=== PATIENT | male | born 1960 | race Caucasian/White ===

== ENCOUNTER 2017-07-08 19:25 | Emergency (ER) | payer OTHER ==
[2017-07-08 21:00] LABS: Urine Blood NEGATIVE (NEG); Urine Glucose NEGATIVE (NEG); Urine Protein NEGATIVE (NEG); Urine Specific Gravity 1.025 (1.005-1.030); Urine pH 5.5 (5.0-7.0)
[2017-07-08] MEDS ORDERED: ACETAMINOPHEN 325 MG TABLET ONE (21:03)
[2017-07-08 21:09] LABS: Absolute Lymphocytes (CBC) 1.8 K/uL (0.7-4.9); Absolute Monocytes 0.8 K/uL (0.1-1.3); Absolute Neutrophil 6.6 K/uL (1.8-8.0); Basophils % 0.2 % (0-1.3); Eosinophils % 1.8 % (0-4.4); Hematocrit 38.7 % (39.6-49.0); Lymphocytes % 19.3 % (15.3-44.8); MCH 31.7 pg (27.0-35.0); MPV 7.9 fL (7.6-11.3); Monocytes % 8.8 % (3.3-12.3)
[2017-07-08 21:16] LABS: Bicarbonate 25 mEq/L (21-31); Glucose Level 87 mg/dL (65-120); Potassium 3.8 mEq/L (3.6-5.0); Sodium Level 137 mEq/L (135-145)
[2017-07-08 21:17] LABS: BUN Blood Urea Nitrogen 15 mg/dL (6-20)
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
--- NOTE | 2017-07-09 11:52 | RAD REPORT ---
EXAM DESCRIPTION: RAD - Knee Left 3 View - 07/08/2017 9:53 pm CLINICAL HISTORY: Left knee pain. COMPARISON: None. FINDINGS: Left total knee arthroplasty noted. No hardware complication. Bony fragmentation seen infe rior aspect of the patella, possibly related fracture or secondarily from prior surgery. Mild soft ti ssue swelling anteriorly.
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
== END 2017-07-09 00:27 | disposition home or self-care (01) ==
LOC: ER 19:25
DX: S80.212A Abrasion, left knee, initial encounter (principal); M25.561 Pain in right knee; Z96.652 Presence of left artificial knee joint; V49.50XA Passenger injured in collision with unspecified motor vehicles in traffic accident, initial encounter; Y92.413 State road as the place of occurrence of the external cause
CPT/HCPCS: 36415; 80048; 81003; 85025; 99284

== ENCOUNTER 2019-08-01 13:12 | Emergency (ER) | payer OTHER ==
--- OUTSIDE RECORDS SUMMARY | 2019-08-01 13:16 | XMS REPORT | Clinical Summary ---
:1960 Author Organization [facility] Address [address] [place] [address] Care Team Providers Name Role Phone Ashish Wheeler MD Primary Care Provider Allergies No Known Allergies Medications Medication Sig Dispensed Refills Start Date End Date Status atorvastatin Take 20 mg by mouth 0 Active (LIPITOR) 20 MG nightly. Default OP tablet ins triamcinolone 2 sprays into each 0 Active (NASACORT) 55 mcg nostril daily. nasal inhaler beta carotene Take 1 capsule by 0 Active (LUMITENE) 30 mg mouth daily. capsule traZODone (DESYREL) Take 100 mg by 0 Active 100 MG tablet mouth nightly. albuterol (ACCUNEB) Take 1 ampule by 0 Active 1.25 mg/3 mL nebulization every nebulizer solution 6 (six) hours as needed for wheezing. albuterol (PROAIR Inhale 2 puffs 0 Active HFA,PROVENTIL every 6 (six) hours HFA,VENTOLIN HFA) 90 as needed for mcg/actuation inhaler wheezing. ondansetron (ZOFRAN) Take 4 mg by mouth 0 Active 4 MG tablet every 8 (eight) hours as needed for nausea or vomiting. mesalamine (LIALDA) Take 2,400 mg by 0 Active 1.2 gram EC tablet mouth daily with breakfast. therapeutic Take 1 tablet by 0 A ctive multivitamin mouth daily. (THERAGRAN) tablet Active Problems Problem Noted Date Chest tightness or pressure 07/06/2018 Social History Tobacco Use Types Packs/Day Years Used Date Never Smoker Smokeless Tobacco: Never Used Alcohol Use Drinks/Week oz/Week Comments Yes socially Sex Assigned at Date Recorded Not on file Job Start Date Occupation Industry Not on file Not on file Not on file Travel History Travel Start Travel End No recent travel history available. Last Filed Vital Signs Not on file Plan of Treatment Health Maintenance Due Date Last Done Comments COLONOSCOPY SCREENING 08/07/2009 SHINGLES VACCINES (#1) 08/07/2009 INFLUENZA VACCINE 10/19/2019 Results Not on fileafter 07/31/2018 Insurance Payer Benefit Plan / Subscriber ID Effective Dates Phone Addre ss Type Group [place]F OF [place] AN[place] CONF OF xxxxxxxxx 2009-Present O [facility] Advance Directives For more information, please contact: [phone] Type Date Recorded Patient Development Technician Explanati on Advance Directives, Living Will and Medical Power of Employment Attorney Code Status Date Activated Date Inactivated Comments Full Code 07/06/2018 4:22 PM 07/07/2018 6:10 PM Code Status decision reached by: Patient
[2019-08-01 13:56] LABS: Protime INR 1.02
[2019-08-01 14:05] LABS: ALT/SGPT 68 U/L (12-78); AST/SGOT 87 U/L (15-37); Albumin 3.7 g/dL (3.4-5.0); Alkaline Phosphatase 146 U/L (45-117); BUN Blood Urea Nitrogen 15 mg/dL (7-18); Bicarbonate 25 mmol/L (21-32); Bilirubin Direct 0.3 mg/dL (0-0.2); Bilirubin Total 0.7 mg/dL (0.2-1.0); Glucose Level 99 mg/dL (74-106); Magnesium 2.1 mg/dL (1.8-2.4); NT PRO-BNP 22 pg/mL (<125); Potassium 4.1 mmol/L (3.5-5.1); Protein, Total 7.1 g/dL (6.4-8.2); Sodium Level 141 mmol/L (136-145); Troponin (Emerg Dept Use Only) < 0.02 ng/mL (0.0-0.045)
--- NOTE | 2019-08-01 14:29 | RAD REPORT ---
EXAM DESCRIPTION: [place] Single View08/01/2019 1:55 pm CLINICAL HISTORY: Chest pain COMPARISON: none FINDINGS: The lungs appear clear of acute infiltrate. The heart is normal size IMPRESSION: No acute abnormalities displayed. If patient's symptoms persist PA and lateral chest se tor would be recommended
[2019-08-01 14:30] LABS: Absolute Lymphocytes (CBC) 1.6 K/uL (0.7-4.9); Basophils % 0.1 % (0-1.3); Hematocrit 38.3 % (39.6-49.0); Lymphocytes % 16.4 % (15.3-44.8); RBC Red Blood Cell Count 4.15 M/uL (4.33-5.43)
--- NOTE | 2019-08-01 16:49 | ER ---
Nurse's Notes [facility] Name: Eris Alfonso II Age: 58 yrs Sex: Male : 1960 Arrival Date: 08/01/2019 Time: 13:14 Bed 4 Private MD: Diagnosis: Chest pain, unspecified Presentation: 07/31 13:15 Chief complaint: EMS states: called out for chest pain that started around 1200, pt em described pain as "elephant sitting on chest" pt denies nausea/vomiting, was given 324 mg ASA and 0.4 mg nitro, pt reports relief from s/s, denies pain now, reports only weakness and feeling different, VSS, EKG SR. Coronavirus screen: Proceed with normal triage. Patient denies a cough. Patient denies shortness of breath or difficulty breathing. Patient denies measured and/or subjective temperature greater than 100.4F prior to today's visit. Patient denies travel on a cruise ship or to a country the [facility] currently lists as an affected area. Patient denies contact with known and/or suspected case of COVID-19. Ebola Screen: Patient negative for fever greater than or equal to 101.5 degrees Fahrenheit, and additional compatible Ebola Virus Disease symptoms Patient denies exposure to infectious person. Patient denies travel to an Ebola-affected area in the 21 days before illness onset. No symptoms or risks identified at this time. Initial Sepsis Screen: Does the patient meet any 2 criteria? No. Patient's initial sepsis screen is negative. Does the patient have a suspected source of infection? No. Patient's initial sepsis screen is negative. Risk Assessment: Do you want to hurt yourself or someone else? Patient reports no desire to harm self or others. Onset of symptoms was August 01, 2019 at 12:00. 13:15 Method Of Arrival: EMS: [facility] em 13:15 Acuity: ROSIE 3 em Historical: - Allergies: 13:19 TETRACYCLINES; em - PMHx: 13:19 Crohn's; em - PSHx: 13:19 L knee; em - Immunization history:: Adult Immunizations up to date. - Social history:: Smoking status: Patient denies any tobacco usage or history of. Screenin:22 Abuse screen: Denies threats or abuse. Nutritional screening: No deficits noted. em Tuberculosis screening: No symptoms or risk factors identified. Fall Risk None identified. Assessment: 13:15 General: Appears in no apparent distress. comfortable, Behavior is calm, cooperative, em appropriate for age, Denies fever. Pain: Complains of pain in chest Pain does not radiate. Pain currently is 0 out of 10 on a pain scale. Pain began 1 hour ago. Neuro: Level of Consciousness is awake, alert, obeys commands, Oriented to person, place, time, situation, Appropriate for age. Cardiovascular: Capillary refill < 3 seconds Patient's skin is warm and dry. Rhythm is sinus rhythm. Respiratory: Airway is patent Respiratory effort is even, unlabored, Respiratory pattern is regular, symmetrical, Denies cough, shortness of breath. GI: Abdomen is round non-distended, Patient currently denies nausea, vomiting. Derm: Skin is intact, is healthy with good turgor, Skin is pink, warm \\T\\ dry. Musculoskeletal: Capillary refill < 3 seconds, Range of motion: intact in all extremities. 13:55 Reassessment: Patient appears in no apparent distress at this time. Patient and/or em family updated on plan of care and expected duration. Pain level reassessed. Patient is alert, oriented x 3, equal unlabored respirations, skin warm/dry/pink. 15:27 Reassessment: Patient appears in no apparent distress at this time. Patient and/or em family updated on plan of care and expected duration. Pain level reassessed. Patient is alert, oriented x 3, equal unlabored respirations, skin warm/dry/pink. Patient denies pain at this time. 16:05 Reassessment: Patient appears in no apparent distress at this time. repeat EKG and em repeat trop. sent. 17:03 Reassessment: Patient appears in no apparent distress at this time. Patient and/or em family updated on plan of care and expected duration. Pain level reassessed. Patient is alert, oriented x 3, equal unlabored respirations, skin warm/dry/pink. Vital Signs: 13:15 BP 138 / 85; Pulse 79; Resp 20; Pulse Ox 94% on R/A; Pain 0/10; em 13:21 Temp 98.3; Weight 133.81 kg; Height 6 ft. 0 in. (182.88 cm); em 13:55 BP 134 / 65; Pulse 83; Resp 16; Pulse Ox 99% on R/A; em 14:45 BP 119 / 67; Pulse 79; Resp 18; Pulse Ox 95% on R/A; em 15:45 BP 104 / 49; Pulse 74; Resp 18; Pulse Ox 99% on R/A; Pain 0/10; em 17:05 BP 116 / 57; Pulse 69; Resp 16; Pulse Ox 99% on R/A; Pain 0/10; em 13:21 Body Mass Index 40.01 (133.81 kg, 182.88 cm) em ED Course: 13:14 Patient arrived in ED. jl7 13:15 Trey Booth, RN is Primary Nurse. em 13:15 Kofi Harper PA is PHCP. jr8 13:15 Ramy Long MD is Attending Physician. jr8 13:15 Maintain EMS IV. Dressing intact. Good blood return noted. Site clean \\T\\ dry. Gauge \\T\\ em site: 18 RAC. 13:19 Triage completed. em 13:19 Arm band placed on. em 13:22 Patient has correct armband on for positive identification. Placed in gown. Bed in low em position. Call light in reach. Side rails up X2. juice scaleman on. Pulse ox on. NIBP on. 13:56 XRAY Chest (1 view) In Process Unspecified. EDMS 15:48 Trey Booth, ROSE is Primary Nurse. em 16:48 Troy Lama MD is Referral Physician. jr8 17:02 No provider procedures requiring assistance completed. IV discontinued, intact, em bleeding controlled, No redness/swelling at site. Pressure dressing applied. Patient maintains SpO2 saturation greater than 95% on room air. Administered Medications: No medications were administered Outcome: 16:48 Discharge ordered by . jr8 17:03 Discharged to home ambulatory. em 17:03 Condition: good 17:03 Discharge instructions given to patient, Instructed on discharge instructions, follow up and referral plans. Demonstrated understanding of instructions, follow-up care. 17:10 Patient left the ED. em Signatures: Dispatcher [employer] EDMS Trey Booth, RN ROSE em Kofi Harper PA PA jr8 Johana Byrne RN RN jl7
--- NOTE | 2019-08-01 16:49 | EDPHYS ---
Physician Documentation [facility] Name: Eris Alfonso II Age: 58 yrs Sex: Male : 1960 Arrival Date: 08/01/2019 Time: 13:14 Bed 4 Private MD: ED Physician Ramy Long HPI: 07/31 15:44 This 58 yrs old Male presents to ER via EMS with complaints of Chest Pain > jr8 29 y/o. 15:44 The patient or guardian reports chest pain that is located primarily in the substernal jr8 area. Onset: acutely, today. The pain does not radiate. Associated signs and symptoms: Pertinent positives: diaphoresis. The chest pain is described as a heaviness, a pressure. Duration: The patient or guardian reports a single episode, that lasted 25 minute(s). Modifying factors: The symptoms are alleviated by NTG, X1. the symptoms are aggravated by nothing. Severity of pain: At its worst the pain was moderate in the emergency department the pain has resolved. The patient has not experienced similar symptoms in the past. The patient has not recently seen a physician. Historical: - Allergies: 13:19 TETRACYCLINES; em - PMHx: 13:19 Crohn's; em - PSHx: 13:19 L knee; em - Immunization history:: Adult Immunizations up to date. - Social history:: Smoking status: Patient denies any tobacco usage or history of. ROS: 15:44 Eyes: Negative for injury, pain, redness, and discharge, ENT: Negative for injury, jr8 pain, and discharge, Neck: Negative for injury, pain, and swelling, Respiratory: Negative for shortness of breath, cough, wheezing, and pleuritic chest pain, Abdomen/GI: Negative for abdominal pain, nausea, vomiting, diarrhea, and constipation, Back: Negative for injury and pain, MS/Extremity: Negative for injury and deformity, Skin: Negative for injury, rash, and discoloration, Neuro: Negative for headache, weakness, numbness, tingling, and seizure. 15:44 Cardiovascular: Positive for chest pain, Negative for edema, orthopnea, palpitations, paroxysmal nocturnal dyspnea. Exam: 15:44 Eyes: Pupils equal round and reactive to light, extra-ocular motions intact. Lids and jr8 lashes normal. Conjunctiva and sclera are non-icteric and not injected. Cornea within normal limits. Periorbital areas with no swelling, redness, or edema. ENT: Nares patent. No nasal discharge, no septal abnormalities noted. Tympanic membranes are normal and external auditory canals are clear. Oropharynx with no redness, swelling, or masses, exudates, or evidence of obstruction, uvula midline. Mucous membranes moist. Neck: Trachea midline, no thyromegaly or masses palpated, and no cervical lymphadenopathy. Supple, full range of motion without nuchal rigidity, or vertebral point tenderness. No Meningismus. Cardiovascular: Regular rate and rhythm with a normal S1 and S2. No gallops, murmurs, or rubs. Normal PMI, no JVD. No pulse deficits. Respiratory: Lungs have equal breath sounds bilaterally, clear to auscultation and percussion. No rales, rhonchi or wheezes noted. No increased work of breathing, no retractions or nasal flaring. Abdomen/GI: Soft, non-tender, with normal bowel sounds. No distension or tympany. No guarding or rebound. No evidence of tenderness throughout. Back: No spinal tenderness. No costovertebral tenderness. Full range of motion. Skin: Warm, dry with normal turgor. Normal color with no rashes, no lesions, and no evidence of cellulitis. MS/ Extremity: Pulses equal, no cyanosis. Neurovascular intact. Full, normal range of motion. Neuro: Awake and alert, GCS 15, oriented to person, place, time, and situation. Cranial nerves II-XII grossly intact. Motor strength 5/5 in all extremities. Sensory grossly intact. Cerebellar exam normal. Normal gait. Vital Signs: 13:15 BP 138 / 85; Pulse 79; Resp 20; Pulse Ox 94% on R/A; Pain 0/10; em 13:21 Temp 98.3; Weight 133.81 kg; Height 6 ft. 0 in. (182.88 cm); em 13:55 BP 134 / 65; Pulse 83; Resp 16; Pulse Ox 99% on R/A; em 14:45 BP 119 / 67; Pulse 79; Resp 18; Pulse Ox 95% on R/A; em 15:45 BP 104 / 49; Pulse 74; Resp 18; Pulse Ox 99% on R/A; Pain 0/10; em 17:05 BP 116 / 57; Pulse 69; Resp 16; Pulse Ox 99% on R/A; Pain 0/10; em 13:21 Body Mass Index 40.01 (133.81 kg, 182.88 cm) em MDM: 13:15 Patient medically screened. jr8 15:44 HEART Score: History: Moderately Suspicious (1), ECG: Non specific repolarization jr8 disturbance / LBTB / PM (1), Age: > 45 and < 65 years (1), Risk Factors: 1 or 2 risk factors (1), [Hypercholesterolemia] [Obesity] Troponin: < or = 1 x Normal Limit (0), Total Score = 3. The patient was not given aspirin in the Emergency Department. Administered by EMS. Data reviewed: vital signs, nurses notes, lab test result(s), EKG, radiologic studies, plain films. Data interpreted: Pulse oximetry: on room air is 99 %. Interpretation: normal. Counseling: I had a detailed discussion with the patient and/or guardian regarding: the historical points, exam findings, and any diagnostic results supporting the discharge/admit diagnosis, lab results, radiology results. 16:47 ED course: X2 troponins and ECGs negative. Patient pain free. Will f/u with cardiology. jr8 Knows to come back immediately if something were to change or worsen. 07/31 13:15 Order name: Basic Metabolic Panel; Complete Time: 14:19 07/31 13:15 Order name: CBC with Diff; Complete Time: 14:47 07/31 13:15 Order name: LFT's; Complete Time: 14:19 07/31 13:15 Order name: Magnesium; Complete Time: 14:19 07/31 13:15 Order name: NT PRO-BNP; Complete Time: 14:19 07/31 13:15 Order name: PT-INR; Complete Time: 14:19 07/31 13:15 Order name: Troponin (emerg Dept Use Only); Complete Time: 14:19 07/31 13:15 Order name: XRAY Chest (1 view); Complete Time: 14:47 07/31 13:15 Order name: EKG; Complete Time: 13:18 07/31 13:15 Order name: Cardiac monitoring; Complete Time: 13:21 07/31 13:15 Order name: EKG - Nurse/Tech; Complete Time: 13:21 07/31 13:15 Order name: IV Saline Lock; Complete Time: 13:21 07/31 13:15 Order name: Labs collected and sent; Complete Time: :07/31 15:54 Order name: Troponin (emerg Dept Use Only); Complete Time: 16:46 hb 07/31 13:15 Order name: O2 Per Protocol; Complete Time: 13:07/31 13:15 Order name: O2 Sat Monitoring; Complete Time: 13:07/31 15:54 Order name: EKG - Nurse/Tech; Complete Time: 16:07 hb Administered Medications: No medications were administered Disposition: 08/01 05:41 Co-signature as Attending Physician, Ramy Long MD I agree with the assessment and gutierrez plan of care. Disposition: 08/01/19 16:48 Discharged to Home. Impression: Chest pain, unspecified. - Condition is Stable. - Discharge Instructions: Nonspecific Chest Pain, Aspirin and Your Heart. - Medication Reconciliation Form, Thank You Letter, Antibiotic Education, Prescription Opioid Use form. - Follow up: Troy Lama MD; When: 24 Hours; Reason: Recheck today's complaints, Continuance of care, Re-evaluation by your physician. - Problem is new. - Symptoms have improved. Signatures: Dispatcher [employer] Ramy Nava MD MD cha Munoz, Edgar, RN RN em Kofi Harper PA PA jr8 Citlali Altamirano, ROSE RN Corrections: (The following items were deleted from the chart) 07/31 17:10 16:48 08/01/2019 16:48 Discharged to Home. Impression: Chest pain, unspecified. em Condition is Stable. Forms are Medication Reconciliation Form, Thank You Letter, Antibiotic Education, Prescription Opioid Use. Follow up: Troy Lama; When: 24 Hours; Reason: Recheck today's complaints, Continuance of care, Re-evaluation by your physician. Problem is new. Symptoms have improved. jr8
--- NOTE | 2019-08-01 17:33 | EKG ---
Test Date: 2019-08-01 Test Time: 13:21:59 Safety Patrol Officer: RODRIGO MEASUREMENT RESULTS: Intervals: Rate: 83 WV: 160 QRSD: 84 QT: 384 QTc: 451 [place]: P: 58 WV: 160 QRS: 36 T: 45 INTERPRETIVE STATEMENTS: Normal sinus rhythm RSR' or QR pattern in V1 suggests right ventricular conduction delay Borderline ECG No previous ECG available for comparison Electronically Signed On 08-01-19 17:32:07 CDT by Troy Lama
[2019-08-01 17:45] VITALS: TEMP 98.3
[2019-08-01 17:49] VITALS: O2SAT 99
[2019-08-01 17:51] VITALS: BP 116/57
--- NOTE | 2019-08-02 11:23 | EKG ---
Test Date: 2019-08-01 Test Time: 16:11:52 Glass Installer Technician: PAU MEASUREMENT RESULTS: Intervals: Rate: 78 NM: 170 QRSD: 92 QT: 382 QTc: 435 [place]: P: 49 NM: 170 QRS: 42 T: 42 INTERPRETIVE STATEMENTS: Normal sinus rhythm Incomplete right bundle branch block Borderline ECG Compared to ECG 08/01/2019 13:21:59 Incomplete right bundle-branch block now present Electronically Signed On 08-02-19 11:21:46 CDT by Troy Lama
== END 2019-08-01 17:10 | disposition home or self-care (01) ==
LOC: ER 13:12
DX: R07.9 Chest pain, unspecified (principal); Z88.1 Allergy status to other antibiotic agents
CPT/HCPCS: 36415; 71045; 80048; 80076; 83735; 83880; 84484; 85025; 85610; 93005; 99285

== ENCOUNTER 2021-12-07 14:02 | Emergency (ER) | payer OTHER ==
--- OUTSIDE RECORDS SUMMARY | 2021-12-07 14:13 | XMS REPORT | Continuity of Care Document ---
:1960 Author Organization [facility] t Address [address] [place] [address] Care Team Providers Name Role Phone PCP, PATIENT DOES NOT HAVE A Primary Care Physician UnavailNEELIMA Rosenbaum Attending Clinician Unavailable Neelima Olmos Attending Clinician Unknown, Attending Attending Clinician Unavailable Doctor Unassigned, [place] Attending Clinician Unavailable Holly Desai MD Attending Clinician [phone] Angelina Linares MA Attending Clinician Unavailable Hernán Moore MD Attending Clinician NILAY CADENA Attending Clinician Unavailable MD BAILEY GONZALEZ Attending Clinician Unavailable Provider, [facility] Attending Clinician Unavailable José Miguel Herrera MD Attending Clinician JOSÉ MIGUEL HERRERA Attending Clinician Unavailable NILSON OKEEFE Attending Clinician Unavailable BAILEY GONZALEZ Admitting Clinician Unavailable MD BAILEY GONZALEZ Admitting Clinician Unavailable Payers Payer Name Policy Type Policy Number Effective Date Expiration Date S [employer] [id number] 2021 NON-CONTRACT 00:00:00 GENERIC Problems Condition Condition Condition Status Onset Resolution Last Treating Co mments Source Name Details Category Date Date Treatment Clinician Date Skin yeast Skin yeast Disease Active M ethodi infection infection 08-26 00:00: Hospita 00 l Rash Rash Disease Active Methodi 08-26 00:00: Hospita 00 l S/P S/P Disease Recurre Methodi laparoscop laparoscop nce 08-18 ic ic 00:00: Hospita cholecyste cholecyste 00 l ctomy ctomy Chest Chest Disease Active Methodi tightness tightness 07-06 st or or 00:00: Hospita pressure pressure 00 l No known No known Disease Unive rs active active ity of problems problems [facility] Allergies, Adverse Reactions, Alerts Allergy Allergy Status Severity Reaction(s) Onset Inactive Treating Comm ents Source Name Type Date Date Clinician LATEX DRUG Active Rash Univers INGREDI 09-08 ity of 00:00: [place] 00 Medical Branch Latex Propensi Active Rash Univers ty to 09-08 ity of adverse 00:00: [place] reaction 00 Medical s Branch NO KNOWN Drug Active Univers ALLERGIE Class ity of S [facility] Family History Family Member Diagnosis Comments Start Date Stop Date Source Natural father Heart disease Methodi [facility] Natural father Hyperlipidemia Method ist [facility] Natural father Hypertension [facility] Natural father Stroke [facility] mother Cancer [facility] Natural sister Irritable bowel Metho dist syndrome [facility] Social History Social Habit Start Date Stop Date Quantity Comments Source History SDOH University o f Alcohol Frequency [place] M ed[facility] History SDOH University o f Alcohol Std [place] Medical Drinks Branch History SDOH University o f Alcohol Binge [place] [facility] Exposure to 2021-08-29 2021-09-08 Not sure University of SARS-CoV-2 00:00:00 11:59:00 [facility] (event) Branch Alcohol intake 2021-07-12 2021-07-12 Current drinker Metho dist 00:00:00 00:00:00 of [facility] (finding) Tobacco use and 2018-07-06 2018-07-06 Smokeless tobacco Me thodist exposure 00:00:00 00:00:00 non-user Hospital Alcohol Comment 2018-07-06 2018-07-06 socially [facility] 00:00:00 00:00:00 Hospital Sex Assigned At [birth year] M [facility] 00:00:00 00:00:00 Hospital Smoking Status Start Date Stop Date Source Never smoked tobacco [facility] Medications Ordered Filled Start Stop Current Ordering Indication Dosage Frequency Signature Comments Components Source Medication Medication Date Date Medication? Clinician (SIG) Name Name sulfamethox 2021- Yes [id number] 1{tbl} Take 1 Univers azole-trime 09-0830 tablet by it y of thoprim 00:00: 04:59 mouth 2 [place] (BACTRIM 00 :00 (two) Medical DS) 800-160 times Branch mg per daily for tablet 7 days. sulfamethox 202- Yes [id number] 1{tbl} Take 1 Univers azole-trime 09-08 06-30 tablet by it y of thoprim 00:00: 04:59 mouth 2 [place] (BACTRIM 00 :00 (two) Medical DS) 800-160 times Branch mg per daily for tablet 7 days. atorvastati Yes 20mg QD Take 20 mg Methodi n (LIPITOR) 4-[address] 20 MG 11:43: nightly. Hospita tablet 48 Default OP l ins triamcinolo Yes 2{spray QD 2 sprays Methodi ne 4-25 } into each st (NASACORT) 11:43: nostril Hosp rigoberto 55 mcg 48 daily. l nasal inhaler beta Yes 1{capsu QD Take 1 Methodi carotene 30 4-25 le} capsule by st mg capsule 11:43: mouth Hospit a 48 daily. l traZODone Yes 100mg QD Take 100 Met hodi (DESYREL) 4-[address] 100 MG 11:43: mouth Hospita tablet 48 nightly. l albuterol Yes 1{ampul Q6H Take 1 Met hodi (ACCUNEB) 4-25 e} ampule by st 1.25 mg/3 11:43: nebulizati Ho spita mL 48 on every 6 l nebulizer (six) solution hours as needed for wheezing. albuterol Yes 2{puff} Q6H Inhale 2 M ethodi (PROAIR 4-[address] HFA,PROVENT 11:43: every 6 Hos steven [place] 48 (six) l HFA,VENTOLI hours as N HFA) 90 needed for mcg/actuati wheezing. on inhaler ondansetron Yes 4mg Q8H Take 4 mg M ethodi (ZOFRAN) 4 4-[address] MG tablet 11:43: every 8 Hospi ta 48 (eight) l hours as needed for nausea or vomiting. mesalamine Yes 2400mg QD Take 2,400 Methodi (LIALDA) 4-[address] 1.2 gram EC 11:43: mouth Hospi ta tablet 48 daily with l breakfast. therapeutic Yes 1{tbl} QD Take 1 Me thodi multivitami 4-[address] n 11:43: mouth Hospita (THERAGRAN) 48 daily. l tablet meloxicam 2022- No 7.5mg QD Take 1 Meth rhona (Mobic) 7.5 2-04 02-[address] mg tablet 00:00: 05:59 (7.5 mg Hosp rigoberto 00 :00 total) by l mouth daily. traMADoL 2020-03- No [id number] 50mg Q8H Take 1 Metho di (ULTRAM) 50 0-06 10-14 tablet (50 s t mg tablet 00:00: 04:59 mg total) Ho spita 00 :00 by mouth l every 8 (eight) hours as needed for moderate pain or severe pain for up to 7 days .acute pain. pregabalin Yes Methodi (LYRICA) 75 9-13 st MG capsule 00:00: Hospita 00 l traMADoL 2020- [place] [id number] 50mg Q6H Take 1 Metho di (ULTRAM) 50 9-13 09-24 tablet (50 s t mg tablet 00:00: 04:59 mg total) Ho spita 00 :00 by mouth l every 6 (six) hours as needed for moderate pain for up to 10 days .acute pain. fluconazole 2020- No 150mg Take 150 Methodi (DIFLUCAN) 6- 10-[address] 150 MG 00:00: 00:00 mouth. Hospita tablet 00 :00 l ketorolac 2020- No [id number] 30mg Un chris (TORADOL) 08-15 ity of injection 19:00: 17:58 [place] 30 mg 00 :00 Medical Branch ketorolac 2020- No [id number] 30mg 30 mg, Univers (TORADOL) 08-15 Intramuscu ity of injection 19:00: 17:58 lar, ONCE, [place] 30 mg 00 :00 1 dose, Medical Sat Branch 5/29/21 at 1400, Routine
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 ity of tablet 17:30: [address] traZODone Yes 100mg Take 100 Uni vers 100 mg 5-29 mg by ity of tablet 17:30: mouth. [address] atorvastati Yes 20mg Take 20 mg Univers n 20 mg 5-29 by mouth. ity of tablet 12:30: [address] traZODone Yes 100mg Take 100 Uni vers 100 mg 5-29 mg by ity of tablet 12:30: mouth. [address] atorvastati Yes 20mg Take 20 mg Univers n 20 mg 5-29 by mouth. ity of tablet 12:30: [address] traZODone Yes 100mg Take 100 Uni vers 100 mg 5-29 mg by ity of tablet 12:30: mouth. [address] mesalamine Yes 2.4g Take 2.4 g U nivers 1.2 gram EC 3-16 by mouth ity of tablet 00:00: every [place] [id number] morning. [facility] mesalamine Yes 2.4g Take 2.4 g U nivers 1.2 gram EC 3-16 by mouth ity of tablet 00:00: every [place] 00 morning. [facility] mesalamine Yes 2.4g Take 2.4 g U nivers 1.2 gram EC 3-16 by mouth ity of tablet 00:00: every [place] 00 morning. [facility] Immunizations Ordered Filled Immunization Date Status Comments [facility] e Immunization Name Name SARS-COV-2 COVID-19 2020-05-24 Completed Unive rsity of MODERNA VACCINE 00:00:00 [facility] SARS-COV-2 COVID-19 2020-05-24 Completed Unive rsity of MODERNA VACCINE 00:00:00 [facility] SARS-COV-2 COVID-19 2020-05-24 Completed Unive rsity of MODERNA VACCINE 00:00:00 [facility] SARS-COV-2 COVID-19 2020-04-26 Completed Unive rsity of MODERNA VACCINE 00:00:00 [facility] SARS-COV-2 COVID-19 2020-04-26 Completed Unive rsity of MODERNA VACCINE 00:00:00 [facility] SARS-COV-2 COVID-19 2020-04-26 Completed Unive rsity of MODERNA VACCINE 00:00:00 [facility] Vital Signs Vital Name Observation Time Observation Value Comments Source Systolic blood 2021-09-08 129 mm[Hg] University of pressure 17:00:00 [facility] Branch Diastolic blood 2021-09-08 83 mm[Hg] University o f pressure 17:00:00 [facility] Heart rate 2021-09-08 77 /min University of 17:00:00 [facility] Body temperature 2021-09-08 36.72 Bettye University of 17:00:00 [facility] Respiratory rate 2021-09-08 18 /min University of 17:00:00 [facility] Body height 2021-09-08 182.9 cm University of 17:00:00 [facility] Body weight 2021-09-08 114.261 kg University of 17:00:00 [facility] BMI 2021-09-08 34.16 kg/m2 University of 17:00:00 [facility] Oxygen saturation 2021-09-08 93 /min No respiratory Universi ty of in Arterial blood 17:00:00 distress noted. [facility] edical by Pulse oximetry No [facility] Systolic blood 2020-08-15 131 mm[Hg] University of pressure 17:28:00 [facility] Diastolic blood 2020-08-15 88 mm[Hg] University o f pressure 17:28:00 [facility] Heart rate 2020-08-15 83 /min University of 17:28:00 [facility] Body temperature 2020-08-15 36.83 Bettye University of 17:28:00 [facility] Respiratory rate 2020-08-15 17 /min University of 17:28:00 [facility] Body height 2020-08-15 182.9 cm University of 17:28:00 [facility] Body weight 2020-08-15 129.275 kg University of 17:28:00 [facility] BMI 2020-08-15 38.65 kg/m2 University of 17:28:00 [facility] Oxygen saturation 2020-08-15 96 /min University of in Arterial blood 17:28:00 [facility] by Pulse oximetry Branch Body height 2021-07-12 182.9 cm [facility] 16:43:00 Hospital Body weight 2021-07-12 111.131 kg [facility] 16:43:00 Hospital BMI 2021-07-12 33.23 kg/m2 [facility] 16:43:00 Hospital Procedures Procedure Date / Time Performing Clinician Source Performed ASSIGNMENT OF BENEFITS 2021-09-08 17:45:33 Doctor Unassigned, [facility] [place] [facility] SC ARTHROCENTESIS 2021-07-12 16:00:00 [facility] ASPIR&/INJ MAJOR JT/BURSA Fernando W/O US XR KNEE 3 VW LEFT 2021-01-08 18:27:26 [facility] Fernando SC ARTHROCENTESIS 2021-01-08 18:15:00 [facility] ASPIR&/INJ MAJOR JT/BURSA Fernando W/O US Plan of Care Planned Activity Planned Date Details Comments Source Future Scheduled 2021-12-07 HEPATITIS B VACCINES Met [facility] Test 14:09:14 (1 of 3 - 3-dose series) [code = HEPATITIS B VACCINES (1 of 3 - 3-dose series)] Future Scheduled 2021-12-07 Hepatitis C screening [facility] Test 14:09:14 (procedure) [code = 157227022] Future Scheduled 2021-12-07 COLONOSCOPY SCREENING [facility] Test 14:09:14 [code = COLONOSCOPY SCREENING] Future Scheduled 2021-12-07 SHINGLES VACCINES (1 Met [facility] Test 14:09:14 of 2) [code = SHINGLES VACCINES (1 of 2)] Future Scheduled 2021-12-07 COVID-19 VACCINE (3 - Me [facility] Test 14:09:14 Booster for Moderna series) [code = COVID-19 VACCINE (3 - Booster for Moderna series)] Future Scheduled 2021-12-07 INFLUENZA VACCINE Method [facility] Test 14:09:14 [code = INFLUENZA VACCINE] Encounters Start End Encounter Admission Attending Care Care Encounter Source Date/Time Date/Time Type Type Clinicians Facility Department ID 2021-09-08 2021-09-08 Outpatient R SAKSHI [facility] [id number] Univers 12:00:00 12:46:22 NEELIMA ity [facility] 2021-09-08 2021-09-08 Urgent [place] [facility] [id number] Univers 12:00:00 12:46:22 Care Unknown, Attending HEALTH [id number] ity of [place] 4.2.7.2.686 Tao as PERRY?BLEA [phone] [facility] [address] MEDICAL OFFICE BUILDING 2021-09-08 2021-09-08 Outpatient R [facility] [id number] Univers 12:00:00 12:00:00 [id number] ity [facility] 2021-09-08 2021-09-08 Orders Doctor YAMILETH [id number] Univers 00:00:00 00:00:00 Only Unassigned, LU 350.1.13.10 ity of [place] [facility] 4.2.7.2.686 Tao as [phone] [address] 2021-07-12 2021-07-12 Office [place], 1.2.840.1 [id number] [id number] Methodi 11:00:00 12:19:41 Visit Holly [address]5325.1.[address] Fernando 3.430.2.7 Hospit a .3.219225 l .8 2021-07-12 2021-07-12 Outpatient [facility] [id number] Mobile 00:00:00 00:00:[address] [facility] [address] 2021-06-18 2021-06-18 Travel 1.2.840.1 [id number] [id number] Methodi 00:00:00 00:00:[address] 3.430.2.7 0.2.7.3.698 Ho spita .3.202314 084.8 l .8 2021-04-23 2021-04-23 Office [place], 1.2.840.1 [id number] Methodi 11:20:00 12:33:24 Visit Holly 77030.1.[address] [place] 3.430.2.7 Hospit a .3.429720 l .8 2021-04-23 2021-04-23 Travel 1.2.840.1 1.2.891.274 [id number] Methodi 00:00:00 00:00:[address] 3.430.2.7 0.2.7.3.698 Ho spita .3.804021 084.8 l .8 2021-04-23 2021-04-23 Outpatient [facility] [id number] Mobile 00:00:00 00:00:[address] HOLLY [address] 2021-01-08 2021-01-08 Clinical Giselle, 1.2.840.1 [id number] Methodi 13:15:00 13:53:52 Support Holly 97186.1.[address] Fernando 3.430.2.7 Hospit a .3.463153 l .8 2021-01-08 2021-01-08 Travel 1.2.840.1 1.2.068.012 [id number] Methodi 00:00:00 00:00:[address] 3.430.2.7 0.2.7.3.698 Ho spita .3.054559 084.8 l .8 2021-01-08 2021-01-08 Outpatient [facility] [id number] Mobile 00:00:00 00:00:[address] HOLLY [address] 2021-01-08 2021-01-08 Outpatient [facility] [id number] Mobile 00:00:00 00:00:00 HOLLY [address] 2021-01-07 2021-01-07 Madison Linares 1.2.840.1 [id number] 2099 [id number] Methodi 00:00:00 00:00:00 Only Angelina 33340.1.[address] 3.430.2.7 Hospit a .3.046999 l .8 2020-12-23 2020-12-23 Madison Moore Hernán 1.2.840.1 [id number] Methodi 00:00:00 00:00:00 Only Cole 41947.1.1 149 3.430.2.7 Hospit a .3.297961 l .8 2020-11-30 2020-11-30 Outpatient [facility] [id number] Mobile 00:00:00 00:00:00 HOLLY 526 Method i 2020-11-30 2020-11-30 Outpatient [facility] [id number] Mobile 00:00:00 00:00:00 HOLLY 131 Method i 2020-09-02 2020-09-02 Outpatient [facility] [id number] Mobile 00:00:00 00:00:00 895 Method i 2020-08-26 2020-08-26 Outpatient [facility] [id number] Mobile 00:00:00 00:00:00 906 Method i 2020-08-15 2020-08-19 Inpatient [facility] [id number] Mobile 00:00:00 00:00:00 NILAY 943 Method i 2020-08-15 2020-08-15 Urgent Provider, [facility]gent Care [facility] 1.2.840.114 [id number] Univers 12:22:31 12:42:31 Care José Miguel Herrera [facility] 350.1.13.10 [facility] 4.2.7.2.686 Tao as Professio [phone] [address] Office Building One 2020-08-15 2020-08-15 Outpatient Tate HERRERA [facility] [id number] Univers 12:20:00 12:20:00 JOSÉ MIGUEL [facility] 2020-05-24 2020-05-24 Outpatient Tate OKEEFE [facility] [id number] Univers 13:50:00 13:50:00 NILSON [facility] 2020-04-26 2020-04-26 Outpatient Tate OKEEFE [facility] [id number] Univers 14:00:00 14:00:00 [facility] Results Test Description Test Time Test Comments Results Result Comments Source SARS-CoV-2 (COVID-19) RNA [Presence] in Respiratory sp ecimen by 2020-08-16 00:54:35 MAY with probe detection Test Item Value Reference Range Interpretation Comme nts SARS-CoV-2 (COVID-19) RNA [Presence] in Respiratory Not detected No t-Detected specimen by MAY with probe detection (test code = 55720-1) Whether patient is employed in a healthcare setting (test code = 13765-0) Whether the patient has symptoms related to condition of interest (test code = 81973-4) Patient was hospitalized because of this condition (test code = 50001-7) Whether the patient was admitted to intensive care unit (ICU) for condition of interest (test code = 34935-3) Whether patient resides in a congregate care setting (test code = 14777-4)
[2021-12-07 14:36] LABS: Absolute Lymphocytes (CBC) 0.2 K/uL (0.7-4.9); Lymphocytes % 2.5 % (15.3-44.8); MCV 92.2 fL (80-100); MPV 6.9 fL (7.6-11.3); RBC Red Blood Cell Count 4.23 M/uL (4.33-5.43)
[2021-12-07] MEDS ORDERED: NA CHLORIDE 0.9% 1,000 ML ONE (14:42)
[2021-12-07] MEDS ORDERED: POTASSIUM CL SA 10 MEQ TAB PO ONE (14:42)
[2021-12-07] MEDS ORDERED: ONDANSETRON 4 MG/2 ML VIAL ONE (14:42)
[2021-12-07 14:48] LABS: Albumin 3.7 g/dL (3.4-5.0); Bilirubin Total 0.6 mg/dL (0.2-1.0); C-Reactive Protein 18.1 mg/L (<3.00); Potassium 3.4 mmol/L (3.5-5.1); Protein, Total 7.1 g/dL (6.4-8.2)
[2021-12-07 16:43] LABS: Urine Blood Negative (Negative); Urine Glucose Negative (Negative); Urine Protein Negative (Negative); Urine Specific Gravity 1.025 (1.005-1.030); Urine pH 5.5 (5.0-7.0)
[2021-12-07 17:09] LABS: Urine Mucus 2+ /HPF (None Seen)
--- NOTE | 2021-12-07 17:31 | ER ---
Nurse's Notes [facility] Name: Eris Alfonso II Age: 61 yrs Sex: Male : 1960 Arrival Date: 12/07/2021 Time: 14:11 Bed 5 Private MD: Diagnosis: Vomiting and diarrhea;Transient hypotension;Dehydration Presentation: 12/07 14:18 Chief complaint: Patient states: Fatigue, N/V/D that began yesterday. EMS reports ss initial BP was 80 systolic. Denies pain. HX of Crohns. Coronavirus screen: Client denies travel out of the [place] in the last 14 days. Ebola Screen: Patient denies exposure to infectious person. Patient denies travel to an Ebola-affected area in the 21 days before illness onset. Initial Sepsis Screen: Does the patient meet any 2 criteria? No. Patient's initial sepsis screen is negative. Does the patient have a suspected source of infection? No. Patient's initial sepsis screen is negative. Risk Assessment: Do you want to hurt yourself or someone else? Patient reports no desire to harm self or others. Onset of symptoms was December 06, 2021. 14:18 Method Of Arrival: EMS: [facility] ss 14:18 Acuity: ROSIE 3 ss Historical: - Allergies: 14:20 TETRACYCLINES; ss - PMHx: 14:20 Crohn's; ss 14:20 EPP; ss - Immunization history:: Adult Immunizations. Screenin:30 Abuse screen: Denies threats or abuse. Denies injuries from another. [facility] 14:30 Nutritional screening: Has had N/V for 3 or more days. Tuberculosis screening: No [facility] symptoms or risk factors identified. Fall Risk IV access (20 points). Assessment: 14:30 General: Appears uncomfortable, Behavior is calm, cooperative. 6 14:30 Pain:. GI: Abdomen is flat, Bowel sounds present X 4 quads. Abdomen is tender to 6 palpation X 4 quads. Reports lower abdominal pain, upper abdominal pain. 15:25 Reassessment: No changes from previously documented assessment. no episodes of n/v/d jh6 since arrival. 16:45 Reassessment: No changes from previously documented assessment. Patient and/or family ss updated on plan of care and expected duration. Pain level reassessed. Patient is alert, oriented x 3, equal unlabored respirations, skin warm/dry/pink. 18:00 Reassessment: Patient and/or family updated on plan of care and expected duration. Pain ss level reassessed. Patient is alert, oriented x 3, equal unlabored respirations, skin warm/dry/pink. pt able to hold down 16 OZ of water without vomiting. has had no episodes of n/v/d since arriving to er. Vital Signs: 14:18 BP 140 / 66; Pulse 81; Resp 17; Temp 97.4(TE); Pulse Ox 99% on R/A; Weight 106.59 kg; ss Height 6 ft. 0 in. (182.88 cm); Pain 0/10; 15:24 BP 125 / 69; Pulse 80; Resp 17; Pulse Ox 100% ; jh6 16:30 BP 118 / 58; Pulse 79; Resp 17; Pulse Ox 99% ; Pain 0/10; ss 17:00 BP 138 / 72; Pulse 82; Resp 17; Pulse Ox 100% ; Pain 2/10; ss 14:18 Body Mass Index 31.87 (106.59 kg, 182.88 cm) ED Course: 14:11 Patient arrived in ED. ss 14:12 Keke Perez MD is Attending Physician. sd2 14:15 Placed in gown. Bed in low position. Call light in reach. Side rails up X 1. jh6 14:15 Maintain EMS IV. Dressing intact. Good blood return noted. Site clean \T\ dry. Gauge \T\ jh 6 site: 20g to rt forearm. 14:20 Triage completed. ss 14:20 Arm band placed on right wrist. ss 14:28 Abby George, RN is Primary Nurse. jh6 18:09 No provider procedures requiring assistance completed. IV discontinued, intact, ss bleeding controlled, No redness/swelling at site. Pressure dressing applied. Administered Medications: 14:36 Drug: NS 0.9% 1000 ml Route: IV; Rate: 1 bolus; Site: right antecubital; 6 15:05 Follow up: IV Status: Completed infusion [facility] 14:36 Drug: Zofran (Ondansetron) 4 mg Route: IVP; Site: right antecubital; 6 15:05 Follow up: Response: No adverse reaction jh6 Medication: 15:26 VIS not applicable for this client. jh6 Outcome: 17:31 Discharge ordered by . sd2 18:09 Discharged to home ambulatory. 18:09 Condition: stable 18:09 Discharge instructions given to patient, Instructed on discharge instructions, Demonstrated understanding of instructions, Prescriptions given X 18:13 Patient left the ED. Signatures: Puja Montes De Oca RN RN Abby Reyes RN RN jh6 Keke Perez MD MD sd2
--- NOTE | 2021-12-07 17:31 | EDPHYS ---
Physician Documentation [facility] Name: Eris Alfonso II Age: 61 yrs Sex: Male : 1960 Arrival Date: 12/07/2021 Time: 14:11 Bed 5 Private MD: ED Physician Keke Perez HPI: 12/07 14:13 This 61 yrs old Male presents to ER via Unassigned with complaints of General Weakness, sd2 Diarrhea. 14:13 61-year-old male with a history of Crohn's disease currently in remission presents via sd2 EMS with chief complaint of nausea, vomiting and diarrhea. He reports the symptoms started yesterday but his last bout of vomiting was last night although he has had continued diarrhea today. He denies any known fevers or recent sick contacts. He reports that he did eat something new but someone else ate it as well and they are not sick. He denies any associated abdominal pain. He has not noticed any blood in his stool. No recent travel or antibiotics. He does complain of generalized weakness. EMS reports the patient's initial blood pressure was 80s over 50s and improved with 300 mL of IV fluids to 120 systolic.. Historical: - Allergies: 14:20 TETRACYCLINES; ss - PMHx: 14:20 Crohn's; ss 14:20 EPP; ss - Immunization history:: Adult Immunizations. ROS: 14:13 Constitutional: Negative for fever, chills, and weight loss, Eyes: Negative for injury, sd2 pain, redness, and discharge, Cardiovascular: Negative for chest pain, palpitations, and edema, Respiratory: Negative for shortness of breath, cough, wheezing. : Negative for dysuria, frequency or hematuria. MS/Extremity: Negative for injury and deformity, Skin: Negative for injury, rash, and discoloration, Neuro: Negative for headache, numbness and tingling. 14:13 Abdomen/GI: Positive for nausea, vomiting, and diarrhea, Negative for abdominal pain, constipation. Exam: 14:13 Constitutional: This is a well developed, well nourished patient who is awake, alert, sd2 and in no acute distress. Head/Face: Normocephalic, atraumatic. Eyes: EOMI, normal conjunctiva bilaterally ENT: Dry mucous membranes Chest/axilla: Normal chest wall appearance and motion. Nontender with no deformity. Cardiovascular: Regular rate and rhythm with a normal S1 and S2. No gallops, murmurs, or rubs. 2+ distal pulses. Respiratory: Lungs have equal breath sounds bilaterally, clear to auscultation and percussion. No rales, rhonchi or wheezes noted. No increased work of breathing, no retractions or nasal flaring. Abdomen/GI: Soft, non-tender, with normal bowel sounds. No guarding or rebound. No evidence of tenderness throughout. Skin: Warm, dry with normal turgor. Normal color with no rashes, no lesions, and no evidence of cellulitis. MS/ Extremity: Pulses equal, no cyanosis. Neurovascular intact. Full, normal range of motion. Ambulatory without difficulty. Psych: Awake, alert, with orientation to person, place and time. Behavior, mood, and affect are within normal limits. Vital Signs: 14:18 BP 140 / 66; Pulse 81; Resp 17; Temp 97.4(TE); Pulse Ox 99% on R/A; Weight 106.59 kg; ss Height 6 ft. 0 in. (182.88 cm); Pain 0/10; 15:24 BP 125 / 69; Pulse 80; Resp 17; Pulse Ox 100% ; jh6 16:30 BP 118 / 58; Pulse 79; Resp 17; Pulse Ox 99% ; Pain 0/10; ss 17:00 BP 138 / 72; Pulse 82; Resp 17; Pulse Ox 100% ; Pain 2/10; ss 14:18 Body Mass Index 31.87 (106.59 kg, 182.88 cm) MDM: 14:12 Patient medically screened. sd2 14:13 Differential diagnosis: Gastritis, cholecystitis, pancreatitis, SBO, diverticulitis, sd2 kidney stone, appendicitis, UTI, dehydration, electrolyte abnormality among others. Data reviewed: vital signs, nurses notes, EMS record. 17:29 Data reviewed: lab test result(s). sd2 17:29 Counseling: I had a detailed discussion with the patient and/or guardian regarding: the sd2 historical points, exam findings, and any diagnostic results supporting the discharge/admit diagnosis, lab results, the need for outpatient follow up, to return to the emergency department if symptoms worsen or persist or if there are any questions or concerns that arise at home. Medical screen evaluation completed. EMTALA emergency medical condition absent. ED course: Labs reviewed. No significant signs of dehydration. CRP mildly elevated. UA without evidence of infection. BP has improved and remained stable after 2L IVFs. Benign abdominal exam. Pt remains without pain. Tolerating PO and feeling improved. Advised of continued supportive care and need for outpatient followup. Comfortable with plan and verbalizes understanding of strict return precautions. . 12/07 14:13 Order name: CBC with Diff; Complete Time: 14:59 sd2 12/07 14:13 Order name: CMP; Complete Time: 14:59 sd2 12/07 14:13 Order name: Lipase; Complete Time: 14:59 sd2 12/07 14:13 Order name: CRP; Complete Time: 14:59 sd2 12/07 14:13 Order name: Urine Microscopic Only; Complete Time: 17:25 sd12/07 16:43 Order name: Urine Dipstick-Ancillary; Complete Time: 16:47 EDMS Administered Medications: 14:36 Drug: NS 0.9% 1000 ml Route: IV; Rate: 1 bolus; Site: right antecubital; [facility] 15:05 Follow up: IV Status: Completed infusion [facility] 14:36 Drug: Zofran (Ondansetron) 4 mg Route: IVP; Site: right antecubital; [facility] 15:05 Follow up: Response: No adverse reaction [facility] Disposition Summary: 12/07/21 17:31 Discharge Ordered Location: Home sd2 Problem: new sd2 Symptoms: have improved sd2 Condition: Stable sd2 Diagnosis - Vomiting and diarrhea sd2 - Transient hypotension sd2 - Dehydration sd2 Followup: sd2 - With: Private Physician - When: 2 - 3 days - Reason: Recheck today's complaints, Continuance of care, Re-evaluation by your physician Discharge Instructions: - Discharge Summary Sheet sd2 - Food Choices to Help Relieve Diarrhea, Adult sd2 - Diarrhea, Adult sd2 - Nausea and Vomiting, Adult sd2 - [place] Diet sd2 Forms: - Medication Reconciliation Form sd2 - Thank You Letter sd2 - Antibiotic Education sd2 - Prescription Opioid Use sd2 Prescriptions: - Zofran 4 mg Oral Tablet - take 1 tablet by ORAL route every 6 hours As needed as needed; may increase to sd2 2 tabs if needed; 20 tablet; Refills: 0, Product Selection Permitted - dicyclomine 20 mg Oral Tablet - take 1 tablet by ORAL route every 6 hours As needed for abdominal cramping; 15 sd2 tablet; Refills: 0, Product Selection Permitted Signatures: Dispatcher [employer] Puja Howard RN RN ss Abby George RN RN [id number] Keke Perez MD MD sd2
[2021-12-08 19:55] VITALS: TEMP 97.4
[2021-12-08 20:01] VITALS: BP 138/72; O2SAT 100
== END 2021-12-07 18:13 | disposition home or self-care (01) ==
LOC: ER 14:02
DX: E86.0 Dehydration (principal); I95.89 Other hypotension; R11.10 Vomiting, unspecified; R19.7 Diarrhea, unspecified; Z88.1 Allergy status to other antibiotic agents
CPT/HCPCS: 85025; 36415; 83690; 80053; 86140; J7030; J2405; 81003; 81015; 96374; 99283